=== PATIENT | male | born 1960 | race Two or more races ===

== ENCOUNTER 2023-03-03 13:49 | Inpatient (IN) | payer MEDICARE, MEDICAID ==
[~2023-03-03] VITALS: Ht 167.6 cm; Wt 69.0 kg
[2023-03-03] MEDS ORDERED: ONDANSETRON HCL 4 MG/2 ML VIAL IV ONE (14:30)
[2023-03-03] MEDS ORDERED: MORPHINE SULFATE 4 MG/ML SYR/VIAL IV ONE (14:30)
[2023-03-03 14:42] LABS: Basophils # (auto) 0 10 ^3/uL (0-0.2); Basophils % (auto) 0.3 % (0.0-2.0); Eosinophils # (auto) 0.1 10 ^3/uL (0-0.8); Eosinophils % (auto) 0.7 % (0.0-7.0); Hematocrit 33.6 % (41.0-53.0); Hemoglobin 10.8 g/dL (13.5-17.5); Lymphocytes # (auto) 0.3 10 ^3/uL (0.4-5.4); Lymphocytes % (auto) 2.3 % (10.0-50.0); Mean Corpuscular Hemoglobin 29.8 pg (28.0-32.0); Monocytes # (auto) 0.5 10 ^3/uL (0-1.3); Monocytes % (auto) 3.2 % (0.0-12.0); Neutrophils # (auto) 13.9 10 ^3/uL (1.6-8.6); Neutrophils % (auto) 93.5 % (37.0-80.0); Red Blood Cells 3.62 10^6/uL (4.5-5.90); Red Cell Distribution Width 15.2 % (11.8-14.3); White Blood Cell 14.9 10^3/uL (4.4-10.8)
[2023-03-03 14:58] LABS: INR 1.25 (0.9-1.15); Partial Thromboplastin Time 37.9 SEC (24.5-34.5); Prothrombin Time 12.9 sec (9.3-11.8)
[2023-03-03 15:02] LABS: Alanine Aminotransferase 22 U/L (7-40); Alkaline Phosphatase 126 U/L (46-116); Anion Gap 16 (5-15); Aspartate Aminotransferase 21 U/L (13-40); BUN/Creatinine Ratio 6.2 (10.0-20.0); Bilirubin, Total 1.3 mg/dL (0.2-1.0); Blood Urea Nitrogen 50 mg/dL (9-23); Calcium 7.8 mg/dL (8.7-10.4); Carbon Dioxide 19 mmol/L (20-30); Chloride 92 mmol/L (98-107); Glucose 134 mg/dL (74-106); Magnesium 1.8 mg/dL (1.6-2.6); Potassium 5.1 mmol/L (3.5-5.1); Sodium 127 mmol/L (136-145); Total Protein 7.4 g/dL (5.7-8.2)
[2023-03-03 17:48] VITALS: PULSE 55; O2SAT 93
[2023-03-03] MEDS ORDERED: SEVE800T10 PO (18:11)
[2023-03-03] MEDS ORDERED: SUCR5CHW PO (18:11)
[2023-03-03] MEDS ORDERED: AMLO1TAB23 PO (18:11)
[2023-03-03] MEDS ORDERED: CARV12.544 PO (18:11)
[2023-03-03] MEDS ORDERED: HYDR-4297 PO (18:11)
[2023-03-03] MEDS ORDERED: LISI20TA56 PO (18:11)
[2023-03-03] MEDS ORDERED: VANCOMYCIN PER PHARMACY 0 MG IV SCH (18:15)
[2023-03-03] MEDS ORDERED: CEFEPIME 1GM/ 50ML 50 ML IV ONE (18:15)
[2023-03-03] MEDS ORDERED: NITROGLYCERIN 0.4 MG SL TAB SL PRN (18:15)
[2023-03-03] MEDS ORDERED: MORPHINE SULFATE INJ 2 MG/ml SYRG IV PRN (18:15)
[2023-03-03] MEDS ORDERED: VANCOMYCIN 1GM/250ML 250 ML IV ONE (18:30)
[2023-03-03] MEDS ORDERED: DEXTROSE (50%) 50ML SYRG IV ONE (20:45)
[2023-03-03] MEDS: HYDROcodone-ACET 5/325MG TAB PO PRN (20:57)
[2023-03-03] MEDS ORDERED: HEPARIN SODIUM (PORCINE) 5000 UNITS/ML 1ML VIAL SC ONE (21:00)
[2023-03-03 22:00] VITALS: PULSE 57; RESP 13; O2SAT 95
[2023-03-03] MEDS ORDERED: InsuLIN REG 1unit/0.01ml Soln (100units/ml) SC ONE (22:00)
[2023-03-03] MEDS: MIDODRINE HCL 10 MG TAB PO SCH (22:00)
[2023-03-03] MEDS ORDERED: ACCU-CHEK COMFORT CURVE STRIP VI ONE (22:00)
[2023-03-03] MEDS: SEVELAMER 800 MG TAB PO SCH (22:56)
[2023-03-04] VITALS (9 sets, daily range): BP systolic 92–157; BP diastolic 59–72; PULSE 48–73; RESP 16–20; TEMP 97.9–99.1; O2SAT 92–97
[2023-03-04] MEDS: MIDODRINE HCL 10 MG TAB PO SCH ×3 (06:04→21:27)
[2023-03-04] MEDS: HYDROcodone-ACET 5/325MG TAB PO PRN ×3 (06:05→20:05)
[2023-03-04 06:07] LABS: Basophils # (auto) 0 10 ^3/uL (0-0.2); Hematocrit 31.7 % (41.0-53.0); Hemoglobin 10.5 g/dL (13.5-17.5); Lymphocytes # (auto) 0.4 10 ^3/uL (0.4-5.4); Monocytes # (auto) 0.6 10 ^3/uL (0-1.3); Monocytes % (auto) 5.5 % (0.0-12.0)
[2023-03-04 06:21] LABS: Alanine Aminotransferase 24 U/L (7-40); Albumin 3.4 g/dL (3.2-4.8); Alkaline Phosphatase 105 U/L (46-116); Anion Gap 14 (5-15); Aspartate Aminotransferase 20 U/L (13-40); BUN/Creatinine Ratio 7.5 (10.0-20.0); Calcium 7.4 mg/dL (8.5-10.1); Carbon Dioxide 20 mmol/L (20-30); Chloride 92 mmol/L (98-107); Glucose 106 mg/dL (74-106); Sodium 126 mmol/L (136-145); Total Protein 6.5 g/dL (5.7-8.2)
[2023-03-04 06:22] LABS: Blood Urea Nitrogen 64 mg/dL (9-23)
[2023-03-04 07:56] LABS: Basophils % (auto) 0.2 % (0.0-2.0); Eosinophils # (auto) 0.1 10 ^3/uL (0-0.8); Eosinophils % (auto) 0.7 % (0.0-7.0); Lymphocytes % (auto) 4.1 % (10.0-50.0); Mean Corpuscular Hemoglobin 30.9 pg (28.0-32.0); Mean Corpuscular Volume 93.5 fL (80.0-100.0); Neutrophils # (auto) 9.3 10 ^3/uL (1.6-8.6); Neutrophils % (auto) 89.5 % (37.0-80.0); Red Blood Cells 3.39 10^6/uL (4.5-5.90); White Blood Cell 10.4 10^3/uL (4.4-10.8)
[2023-03-04] MEDS: SEVELAMER 800 MG TAB PO SCH ×3 (08:05→18:02)
[2023-03-04] MEDS ORDERED: HEPARIN SODIUM (PORCINE) 5000 UNITS/ML 1ML VIAL SC SCH (09:00)
[2023-03-04] MEDS ORDERED: SODIUM CHL 0.9% 1000 ML BAG XX ONE (10:00)
[2023-03-04] MEDS: CEFEPIME 1GM/ 50ML 50 ML IV SCH (10:27)
[2023-03-04] MEDS ORDERED: VANCOMYCIN 500 MG in D5W 5% 100 ML IV ONE ×2 (10:45→14:30)
[2023-03-04] MEDS: ONDANSETRON HCL 4 MG/2 ML VIAL IV PRN (12:36)
[2023-03-04] MEDS ORDERED: ALBUMIN 25% 100 ML IV SCH (13:30)
[2023-03-04] MEDS ORDERED: VANCOMYCIN PER PHARMACY 0 MG IV SCH (13:45)
[2023-03-04] MEDS ORDERED: EPOETIN ALFA-EPBX 4,000 UNIT/ML VIAL SC ONE (21:00)
[2023-03-04 21:48] LABS: Urine Bacteria NONE SEEN /hpf (None Seen); Urine Blood 1+ /uL (Negative); Urine Clarity HAZY (Clear); Urine Color Yellow (Yellow); Urine Hyaline Cast FEW /lpf (0 - 2); Urine Mucus FEW (None Seen); Urine Protein, UAD 3+ (Negative); Urine Specific Gravity 1.018 (1.001-1.035); Urine Urobilinogen Normal (Negative); Urine WBC 7 /hpf (0 - 3)
[2023-03-05] MEDS: MIDODRINE HCL 10 MG TAB PO SCH ×3 (06:13→22:00)
[2023-03-05 06:45] LABS: Basophils # (auto) 0 10 ^3/uL (0-0.2); Eosinophils # (auto) 0 10 ^3/uL (0-0.8); Eosinophils % (auto) 0.3 % (0.0-7.0); Hematocrit 33.7 % (41.0-53.0); Hemoglobin 10.9 g/dL (13.5-17.5); Lymphocytes # (auto) 0.3 10 ^3/uL (0.4-5.4); Lymphocytes % (auto) 2.4 % (10.0-50.0); Mean Corpuscular Hemoglobin 30.2 pg (28.0-32.0); Mean Corpuscular Hgb Conc. 32.4 g/dL (32.0-36.0); Mean Corpuscular Volume 93.5 fL (80.0-100.0); Monocytes # (auto) 0.7 10 ^3/uL (0-1.3); Monocytes % (auto) 5.3 % (0.0-12.0); Neutrophils # (auto) 11.9 10 ^3/uL (1.6-8.6); Red Cell Distribution Width 14.9 % (11.8-14.3)
[2023-03-05 06:52] LABS: Chloride 95 mmol/L (98-107); Potassium 4.2 mmol/L (3.5-5.1)
[2023-03-05 06:53] LABS: Anion Gap 11 (5-15); Carbon Dioxide 25 mmol/L (20-30)
[2023-03-05 06:54] LABS: Calcium 7.9 mg/dL (8.7-10.4)
[2023-03-05 06:58] LABS: Glucose 102 mg/dL (74-106)
[2023-03-05 06:59] LABS: BUN/Creatinine Ratio 7.3 (10.0-20.0)
[2023-03-05 07:01] LABS: Blood Urea Nitrogen 44 mg/dL (9-23); Sodium 131 mmol/L (136-145)
[2023-03-05] MEDS: HYDROcodone-ACET 5/325MG TAB PO PRN ×3 (07:01→23:01)
[2023-03-05] MEDS ORDERED: ADENOSINE 60 MG in GIVE UN-DILUTED 0 ML IV STA (07:18)
[2023-03-05] MEDS: SEVELAMER 800 MG TAB PO SCH ×3 (07:52→18:22)
[2023-03-05 08:00] VITALS: BP 147/52; PULSE 64; PULSE 66; RESP 19; TEMP 99; O2SAT 95
[2023-03-05 08:27] VITALS: BP 147/52; PULSE 64; RESP 19; TEMP 99.1; O2SAT 95
[2023-03-05] MEDS: CEFEPIME 1GM/ 50ML 50 ML IV SCH (10:06)
[2023-03-05 12:00] VITALS: BP 132/33; PULSE 63; RESP 21; TEMP 98.4; O2SAT 94
[2023-03-05] MEDS ORDERED: LIDOCAINE 1% HCL (LOCAL ANESTH.) INJ 20ML MDV ONE (13:02)
[2023-03-05] MEDS ORDERED: ALBUMIN 25% 100 ML IV ONE (13:15)
[2023-03-05] MEDS: ONDANSETRON HCL 4 MG/2 ML VIAL IV PRN (13:55)
[2023-03-05 16:42] VITALS: BP 119/57; PULSE 61; RESP 20; TEMP 98; O2SAT 98
[2023-03-05 16:57] LABS: Body Fluid Polymorphonuclear 35 % (0-25); Body Fluid Red Blood Cells 1350 CUMM (0-2000); Body Fluid White Blood Cells 200 CUMM (0-200); Body Fluid pH 8
[2023-03-05] MEDS ORDERED: VANCOMYCIN 500 MG in D5W 5% 100 ML IV ONE ×2 (17:00→20:30)
[2023-03-05 20:00] VITALS: BP 146/70; PULSE 60; PULSE 68; RESP 18; TEMP 98.5; O2SAT 93
[2023-03-05 22:00] VITALS: BP 146/70; PULSE 68; RESP 19; TEMP 98.5; O2SAT 93
[2023-03-06] VITALS (8 sets, daily range): BP systolic 122–172; BP diastolic 42–73; PULSE 62–65; RESP 18–20; TEMP 98.2–98.5; O2SAT 93–98
[2023-03-06 05:52] LABS: Basophils # (auto) 0 10 ^3/uL (0-0.2); Basophils % (auto) 0.1 % (0.0-2.0); Eosinophils # (auto) 0 10 ^3/uL (0-0.8); Eosinophils % (auto) 0.3 % (0.0-7.0); Hemoglobin 10.6 g/dL (13.5-17.5); Lymphocytes # (auto) 0.5 10 ^3/uL (0.4-5.4); Lymphocytes % (auto) 4.9 % (10.0-50.0); Mean Corpuscular Hemoglobin 30.4 pg (28.0-32.0); Mean Corpuscular Volume 92.2 fL (80.0-100.0); Monocytes # (auto) 0.8 10 ^3/uL (0-1.3); Monocytes % (auto) 8.5 % (0.0-12.0); Neutrophils % (auto) 86.2 % (37.0-80.0); Red Blood Cells 3.48 10^6/uL (4.5-5.90); Red Cell Distribution Width 14.8 % (11.8-14.3); White Blood Cell 9.2 10^3/uL (4.4-10.8)
[2023-03-06] MEDS: MIDODRINE HCL 10 MG TAB PO SCH ×3 (06:00→21:28)
[2023-03-06 06:11] LABS: Anion Gap 9 (5-15); Calcium 7.8 mg/dL (8.7-10.4); Carbon Dioxide 28 mmol/L (20-30); Chloride 94 mmol/L (98-107); Potassium 3.6 mmol/L (3.5-5.1); Sodium 131 mmol/L (136-145)
[2023-03-06 06:17] LABS: BUN/Creatinine Ratio 6.5 (10.0-20.0); Glucose 120 mg/dL (74-106)
[2023-03-06 06:22] LABS: Blood Urea Nitrogen 33 mg/dL (9-23)
[2023-03-06] MEDS: SEVELAMER 800 MG TAB PO SCH ×4 (08:00→17:41)
[2023-03-06] MEDS: CEFEPIME 1GM/ 50ML 50 ML IV SCH (09:26)
[2023-03-06] MEDS ORDERED: DAKINS QUARTER STR 0.125% (NaHypochlorite) 473 ML TOPICAL SOL TOP ONE (11:30)
[2023-03-06] MEDS: HYDROcodone-ACET 5/325MG TAB PO PRN (11:42)
[2023-03-06 13:06] LABS: Protein, Body Fluid 5.2 g/dL (.)
[2023-03-06] MEDS ORDERED: VANCOMYCIN 500 MG in D5W 5% 100 ML IV ONE (17:00)
[2023-03-06] MEDS: DAKINS QUARTER STR 0.125% (NaHypochlorite) 473 ML TOPICAL SOL TOP SCH (21:29)
[2023-03-07] VITALS (7 sets, daily range): BP systolic 90–172; BP diastolic 42–79; PULSE 57–65; RESP 17–19; TEMP 97.2–98.1; O2SAT 95–97
[2023-03-07] MEDS: HYDROcodone-ACET 5/325MG TAB PO PRN ×2 (00:45→21:17)
[2023-03-07] MEDS: MIDODRINE HCL 10 MG TAB PO SCH ×3 (05:40→21:17)
[2023-03-07 06:27] LABS: Chloride 93 mmol/L (98-107); Sodium 127 mmol/L (136-145)
[2023-03-07 06:28] LABS: Anion Gap 10 (5-15); Carbon Dioxide 24 mmol/L (20-30)
[2023-03-07 06:29] LABS: Calcium 7.9 mg/dL (8.5-10.1)
[2023-03-07 06:33] LABS: Glucose 123 mg/dL (74-106)
[2023-03-07 06:34] LABS: BUN/Creatinine Ratio 9.4 (10.0-20.0)
[2023-03-07 06:35] LABS: Blood Urea Nitrogen 57 mg/dL (9-23)
[2023-03-07] MEDS: ONDANSETRON HCL 4 MG/2 ML VIAL IV PRN (06:41)
[2023-03-07] MEDS: SEVELAMER 800 MG TAB PO SCH ×3 (08:00→17:13)
[2023-03-07] MEDS: CEFEPIME 1GM/ 50ML 50 ML IV SCH (10:00)
[2023-03-07] MEDS: DAKINS QUARTER STR 0.125% (NaHypochlorite) 473 ML TOPICAL SOL TOP SCH ×2 (10:00→21:20)
[2023-03-07] MEDS ORDERED: amLODIPine BESYLATE 5 MG TAB PO ONE (15:15)
[2023-03-07] MEDS ORDERED: LISINOPRIL 20 MG TAB PO ONE (15:15)
[2023-03-07] MEDS ORDERED: hydrALAZINE HCL 25 MG TAB PO ONE (15:15)
[2023-03-07] MEDS ORDERED: CARVEDILOL 12.5 MG TAB PO ONE (15:15)
[2023-03-07] MEDS ORDERED: VANCOMYCIN 500 MG in D5W 5% 100 ML IV ONE (17:00)
[2023-03-07] MEDS: hydrALAZINE HCL 25 MG TAB PO SCH (21:18)
[2023-03-07] MEDS ORDERED: CARVEDILOL 12.5 MG TAB PO SCH (22:00)
[2023-03-08] MEDS ORDERED: CARVEDILOL 12.5 MG TAB PO SCH (03:00)
[2023-03-08 05:00] VITALS: BP 121/49; PULSE 57; RESP 19; TEMP 98.3; O2SAT 97
[2023-03-08] MEDS: ONDANSETRON HCL 4 MG/2 ML VIAL IV PRN (05:53)
[2023-03-08] MEDS: MIDODRINE HCL 10 MG TAB PO SCH (05:55)
[2023-03-08] MEDS: hydrALAZINE HCL 25 MG TAB PO SCH (05:56)
[2023-03-08] MEDS: SEVELAMER 800 MG TAB PO SCH ×2 (08:00→12:00)
[2023-03-08] MEDS: CEFEPIME 1GM/ 50ML 50 ML IV SCH (10:00)
[2023-03-08] MEDS: DAKINS QUARTER STR 0.125% (NaHypochlorite) 473 ML TOPICAL SOL TOP SCH (10:00)
[2023-03-08] MEDS ORDERED: amLODIPine BESYLATE 5 MG TAB PO SCH (10:00)
[2023-03-08] MEDS ORDERED: LISINOPRIL 20 MG TAB PO SCH (10:00)
[2023-03-08] MEDS ORDERED: DOXY1CAP57 PO (10:12)
== END 2023-03-08 12:58 | disposition home or self-care (01) | DRG 871 ==
LOC: ER 13:49 → TELE 18:09 → CENTRAL 18:09 → TELE-EAST 23:10 → TELE-CENTR 03-06 09:27 → CENTRAL 03-07 14:32
PROVIDERS: ADMIT Nurse Practitioner Family; ATTEND Internal Medicine Geriatric Medicine
PROC: 5A1D70Z Performance of Urinary Filtration, Intermittent, Less than 6 Hours Per Day (ICD-10-PCS; 2023-03-04)
PROC: 0W9G3ZZ Drainage of Peritoneal Cavity, Percutaneous Approach (ICD-10-PCS; principal; 2023-03-05)
PROC: 5A1D70Z Performance of Urinary Filtration, Intermittent, Less than 6 Hours Per Day (ICD-10-PCS; 2023-03-05)
PROC: 5A1D70Z Performance of Urinary Filtration, Intermittent, Less than 6 Hours Per Day (ICD-10-PCS; 2023-03-07)
DX: A41.1 Sepsis due to other specified staphylococcus (principal); N18.6 End stage renal disease; T87.44 Infection of amputation stump, left lower extremity; E87.1 Hypo-osmolality and hyponatremia; I13.2 Hypertensive heart and chronic kidney disease with heart failure and with stage 5 chronic kidney disease, or end stage renal disease; R18.8 Other ascites; L03.116 Cellulitis of left lower limb; E87.5 Hyperkalemia; K52.9 Noninfective gastroenteritis and colitis, unspecified; E11.22 Type 2 diabetes mellitus with diabetic chronic kidney disease; K74.60 Unspecified cirrhosis of liver; D64.9 Anemia, unspecified; I50.9 Heart failure, unspecified; Y83.5 Amputation of limb(s) as the cause of abnormal reaction of the patient, or of later complication, without mention of misadventure at the time of the procedure; M25.511 Pain in right shoulder; D69.59 Other secondary thrombocytopenia; E11.51 Type 2 diabetes mellitus with diabetic peripheral angiopathy without gangrene; I25.10 Atherosclerotic heart disease of native coronary artery without angina pectoris; N30.90 Cystitis, unspecified without hematuria; Z91.199 Patient's noncompliance with other medical treatment and regimen due to unspecified reason; Z99.2 Dependence on renal dialysis; Z83.3 Family history of diabetes mellitus; Z82.49 Family history of ischemic heart disease and other diseases of the circulatory system; Y92.89 Other specified places as the place of occurrence of the external cause; Z89.432 Acquired absence of left foot
CPT/HCPCS: 36415; 71045; 73030; 73718; 74176; 76705; 76942; 80048; 80053; 80202; 81001; 82962; 83605; 83690; 83735; 83880; 83986; 84484; 85025; 85610; 85730; 87040; 87077; 87081; 87186; 87205; 89051; 90935; 93005; 93306; 93971; G0378; J0153; J1815; J2001; J2405; J7060; P9047